=== PATIENT | male | born 1980 | race Hispanic/Latino ===

== ENCOUNTER 2017-11-05 22:07 | Emergency (ER) | payer BC, OTHER ==
[2017-11-05] MEDS ORDERED: KETOROLAC TROMETHAMINE 30MG/ML ONE (23:03)
[2017-11-05 23:04] LABS: BASOPHILS % (AUTO) 0.5 % (0.0-5.0); EOSINOPHILS % (AUTO) 2.6 % (0.0-8.0); HEMATOCRIT 43.1 % (42-54); LYMPHOCYTES % (AUTO) 23.6 % (21.0-51.0); MEAN CORPUSCULAR HEMOGLOBIN 28.1 pg (27.0-33.0); MEAN CORPUSCULAR HGB CONC 34.3 g/dL (32.0-36.0); MEAN CORPUSCULAR VOLUME 81.7 fL (79-99); MONOCYTES % (AUTO) 9.2 % (3.0-13.0); NEUTROPHILS % (AUTO) 64.1 % (40.0-77.0); PLATELET COUNT (AUTO) 236 K/uL (130-400); RED BLOOD CELL COUNT(AUTO) 5.28 MIL/uL (4.50-6.20); RED CELL DISTRIBUTION WIDTH 13.2 % (11.0-15.5); WHITE BLOOD COUNT (AUTO) 8.6 K/uL (4.8-10.8)
[2017-11-05 23:27] LABS: CREATININE 1.1 mg/dL (0.5-1.5); POTASSIUM 4.6 mmol/L (3.5-5.1)
[2017-11-05 23:32] LABS: ALBUMIN 3.9 g/dL (3.5-5.0); BILIRUBIN,TOTAL 0.5 mg/dL (0.2-1.0); CRP QUANTITATIVE 9.3 mg/L (0.00-9.0); TOTAL PROTEIN, SERUM 8.3 g/dL (6.0-8.3)
[2017-11-06 00:09] LABS: ERYTHROCYTE SEDIMENTATION RATE 9 MM/HR (0-15)
== END 2017-11-06 00:27 | disposition home or self-care (01) ==
LOC: EDH 22:07
DX: L03.114 Cellulitis of left upper limb (principal)
CPT/HCPCS: 36415; 73110; 80053; 85025; 85651; 86140; 87040 ×2; 96374; 99285; J1885

== ENCOUNTER 2025-03-27 08:01 | Emergency (ER) | payer BC ==
[~2025-03-27] VITALS: Ht 175.3 cm; Wt 93.0 kg
--- NOTE | 2025-03-27 08:29 | ERN ---
ED Note History of Present Illness Stated Complaint: LACERATION Chief Complaint: Laceration/Avulsion Time Seen by MD: 08:25 Dictation: 44-year-old male with a history of hypertension who presents to emergency room with complaints of a right lower extremity laceration after using a cutting saw to mold a car. States this happened just prior to arrival. He placed bandages on the area to prevent the bleeding. He denies any use of blood thinners. States that he does not remember his last Tdap however it may have been 3-4 year s ago. No fever no cough no shortness a breath no nausea vomiting diarrhea. No abdominal pain. Allergies: Uncoded Allergies: NKDA (Allergy, Mild, 02/11/14) Past Medical History Past Medical History: Hypertension, Other Additional Past Medical Hx: gout Surgical History: Appendectomy, Cholecystectomy Review of System Dictation Positive laceration Review of Systems: was completed, & the rest were negative. Initial Vital Sign VS Vital Signs Date Time Temp Pulse Resp B/P (MAP) Pulse Ox O2 Delivery O2 Flow Rate FiO2 03/27/25 08:09 97.3 89 18 145/105 95 Room Air 0 03/27/25 08:12 21 Physical Exam Dictation GENERAL APPEARANCE NAD, activity normal for age, well developed/ well nourished, no cyanosis, pallor, or diaphoresis. EYES lids/conjunctiva normal. EARS/NOSE/THROAT Mucous membranes moist, nares normal, lips/teeth normal uvula midline without oral pharyngeal erythema, exudate or swelling TMs normal bilaterally. No lymphangitis/lymphedema. HEAD/NECK normocephalic atraumatic, no facial trauma, neck is supple. RESPIRATORY respiratory effort normal, speaks in full sentences, no tripod position, no accessory muscle use. Lungs clear to auscultation without rhonchi, wheezes, rales CARDIAC Regular rate and rhythm, no edema. ABDOMINAL Soft, ND/NT. No evidence of fluid wave. No pulsatile masses on exam, rebound tenderness, Champagne sign or pain over Mcburney's point. MUSCLES/EXTREMITIES right lateral lower extremity on thigh with a 2-3 cm linear laceration with mild active bleeding. Hemostasis achieved with the pressure and bandage NEUROLOGICAL Speech is clear and appropriate. Normal level of consciousness. Gait and coordination are normal. 5/5 strength in all extremities. PSYCH Normal mood and affect. Judgement/competence is appropriate ED Course ED Course Orders Procedure Category Date Status Time Lidocaine 1%-Epi PHA 03/27/25 Complete 1:100,000 (Lidocaine 08:30 Tetanus,Diphtheria PHA 03/27/25 Complete Tox [Adult] (Diphther 08:30 Lidocaine 1%-Epi PHA 03/27/25 Complete 1:100,000 (Lidocaine 09:00 Current Medications Medications (Trade) Dose Ordered Sig/Annette Route PRN Reason Start Time Stop Time Status Last Admin Dose Admin Lidocaine/ Epinephrine (Lidocaine 1%-Epi 1:100,000) 20 ml ONCE IJ 03/27/25 08:30 03/27/25 08:31 DC Lidocaine/ Epinephrine (Lidocaine 1%-Epi 1:100,000) 20 ml ONCE ONCE IJ 03/27/25 09:00 03/27/25 09:01 DC 03/27/25 09:02 Tetanus/ Diphtheria Toxoids Adsorbed (DiphthERIA-teTANUS TOXOID [ADULT]/ DECAVAC) 0.5 ml ONCE ONCE IM 03/27/25 08:30 03/27/25 08:31 DC 03/27/25 09:03 Vital Signs Date Time Temp Pulse Resp B/P (MAP) Pulse Ox O2 Delivery O2 Flow Rate FiO2 03/27/25 08:13 98.2 77 17 147/90 95 Room Air* 0 21 03/27/25 08:12 97.3 89 18 145/105 95 Room Air* 0 21 03/27/25 08:09 97.3 89 18 145/105 95 Room Air 0 Medical Decision Making MDM 44-year-old male with laceration to right lower extremity. We will get Tdap and suture. No active signs of infection. Advised on concerning signs and symptoms for which to return to emergency room. We will have patient follow up with the PCP. All questions answered at this time. Procedure Wound Location: lower extremity Wound's Depth, Shape: superficial Wound Explored: clean Betadine Prep?: Yes Anesthesia: Lidocaine w/ Epi Wound Debrided: minimal Wound Repaired With: sutures Suture Size/Type: 3:0 Number of Sutures: 3 Layer Closure?: Yes Deep Layer Suture Size/Type: 3:0 DX & DISP Disposition: Discharge Departure Impression: Primary Impression: Leg laceration Condition: Stable Referrals: LESLEY WILD MD (PCP) BELINDA BLANCO MD Mar 27, 2025 08:29
[2025-03-27] MEDS ORDERED: LIDOCAINE 1%-EPI 1:100,000 20 ML VIAL IJ SCH (08:30)
[2025-03-27] MEDS: LIDOCAINE 1%-EPI 1:100,000 20 ML VIAL IJ ONE (09:02)
[2025-03-27 09:33] VITALS: BP 147/97; PULSE 75; RESP 20; TEMP 97.9; O2SAT 99
== END 2025-03-27 09:39 | disposition home or self-care (01) ==
LOC: EDH 08:01
DX: S81.811A Laceration without foreign body, right lower leg, initial encounter (principal); I10 Essential (primary) hypertension; Z90.49 Acquired absence of other specified parts of digestive tract; W27.0XXA Contact with workbench tool, initial encounter; Y93.89 Activity, other specified; Y92.89 Other specified places as the place of occurrence of the external cause; Y99.8 Other external cause status
CPT/HCPCS: 99284; 90714; 90471; 12002; J3490